=== PATIENT | male | born 1990 | race Caucasian/White ===

== ENCOUNTER 2020-04-07 05:10 | Emergency (ER) | payer BC ==
[2020-04-07] MEDS ORDERED: Boostrix 0.5 ML (Tdap) VIAL ONE (05:23)
[2020-04-07] MEDS ORDERED: Lidocaine 1% PF 5 ML VIAL ONE (05:27)
[2020-04-07] MEDS ORDERED: Bacitracin 1 PK ONE (05:40)
[2020-04-07] MEDS ORDERED: Ondansetron ODT 4 MG TAB ONE (05:46)
== END 2020-04-07 06:05 | disposition home or self-care (01) ==
LOC: BURERS 05:10
DX: S61.011A Laceration without foreign body of right thumb without damage to nail, initial encounter (principal); I10 Essential (primary) hypertension; F17.220 Nicotine dependence, chewing tobacco, uncomplicated; W26.8XXA Contact with other sharp object(s), not elsewhere classified, initial encounter
CPT/HCPCS: 12002; 90471; 90715; Q0162